=== PATIENT | female | born 1965 | race Caucasian/White ===

== ENCOUNTER 2017-08-21 23:43 | Observation (INO) | payer OTHER ==
[~2017-08-21] VITALS: Ht 152.4 cm; Wt 61.5 kg
[~2017-08-21 23:43] MED LIST: IBUP600T26 PO; ZYRT10TA12 PO
[2017-08-21 23:45] VITALS: BP 133/78; PULSE 79; RESP 16; TEMP 98.8; O2SAT 98
--- NOTE | 2017-08-22 02:12 | PD ---
HPI Chief Complaint: Chest Pain Time Seen by Provider: 01:45 Travel History International Travel<30 days: No Contact w/Intl Traveler<30days: No Traveled to known affect area: No History of Present Illness HPI 51yo F with PMH of tachyarrhythmia s/p ablation about 3 years ago presents to the ED with c/o left sided chest pain after leaving AMA from [facility]. Pt states chest pain is pressure like and constant. Associated with some sob and cold sensation in left arm. Also with left upper back pain but that is not pressure like. Denies any fever, cough, n/v, abdominal pain, focal weakness or numbness. States she had blood work, CXR at [facility]. States she was going to be transferred here for admission but they didnt want to wait so they signed out AMA and came here themselves. Was given aspirin and nitroglycerin paste. Pt does not have a lighting adviser and had not had similar chest pain in the past. Also with palpitations 2 weeks ago. PFSH Past Medical History Heart Rhythm Problems: Yes (TACHYCARDIA) Cardiovascular Problems: Yes (TACHYCARDIA) Diminished Hearing: No Tetanus Vaccination: Unknown Influenza Vaccination: No ?: Not Past Surgical History Cardiac Surgery: Yes (ABLATION TO TREAT TACHYCARDIA) Other Surgery: Yes Social History Alcohol Use: No Tobacco Use: No Substance Use: No Allergies-Medications (Allergen,Severity, Reaction): Coded Allergies: cortisone (Verified Allergy, Severe, 08/21/17) adhesive (Verified Allergy, Mild, ITCHING, HEADACHE, 08/21/17) codeine (Verified Allergy, Mild, ITCHING/HEADACHE/NAUSEA, 08/21/17) Reported Meds & Prescriptions Reported Meds & Active Scripts Active No Active Prescriptions or Reported Medications Review of Systems Except as stated in HPI: all other systems reviewed are Neg Physical Exam Narrative GENERAL: 51yo F not in distress. SKIN: Focused skin assessment warm/dry. HEAD: Atraumatic. Normocephalic. NECK: Trachea midline. No JVD. CARDIOVASCULAR: Regular rate and rhythm. No murmur appreciated. RESPIRATORY: No accessory muscle use. Clear to auscultation. Breath sounds equal bilaterally. GASTROINTESTINAL: Abdomen soft, non-tender, nondistended. No rebound tenderness or guarding. MUSCULOSKELETAL: No obvious deformities. No clubbing. No cyanosis. No edema. NEUROLOGICAL: Awake and alert. No obvious cranial nerve deficits. Motor grossly within normal limits. Normal speech. PSYCHIATRIC: Appropriate mood and affect; insight and judgment normal. Data Data Last Documented VS Vital Signs Date Time Temp Pulse Resp B/P (MAP) Pulse Ox O2 Delivery O2 Flow Rate FiO2 08/22/17 03:00 78 16 100/68 (79) 98 Room Air 08/21/17 23:45 98.8 Orders Orders Electrocardiogram (08/22/17 ) Troponin I (08/22/17 02:04) Admit Order (Ed Use Only) (08/22/17 03:41) Activity Bed Rest With Brp (08/22/17 03:41) Vital Signs (Adult) Q4H (08/22/17 03:41) Cardiac Rhythm .As Directed (08/22/17 03:41) Notify Dr: Other .PRN (08/22/17 03:41) Notify Parameters (08/22/17 03:41) Resp Oxygen Nasal Cannula (08/22/17 ) Ckmb (Isoenzyme) Profile (08/22/17 03:41) Troponin I (08/22/17 03:41) Electrocardiogram (08/22/17 03:41) Electrocardiogram (08/22/17 06:41) ^ Obtain (08/22/17 03:41) Sodium Chloride 0.9% Flush (Ns Flush) (08/22/17 03:45) Sodium Chloride 0.9% Flush (Ns Flush) (08/22/17 09:00) Cuprous Chloride Helper / Telemetry LANCE.Q8H (08/22/17 03:41) Labs Laboratory Tests Test 08/22/17 02:25 Troponin I LESS THAN 0.02 NG/ML MDM Medical Decision Making Medical Screen Exam Complete: Yes Emergency Medical Condition: Yes Interpretation(s) EKG: NSR 72bpm. Normal axis. No ST segment elevation or depresion. TWI V2, III. Differential Diagnosis ACS vs. GERD vs. musculoskeletal pain Narrative Course 51yo F with history of tachyarrhythmia s/p ablation here with left sided chest pain. Pt had labs completed at [place] and I reviewed the labs. No leukocytosis. H/H normal. Troponin negative at 8:22pm. Will order second troponin now. Pt already had CXR that was normal. Troponin #2 negative. Will admit to chest pain center for serial EKG and cardiac enzyme and possible cardiac stress test. Diagnosis Primary Impression: Chest pain Qualified Codes: R07.9 - Chest pain, unspecified Admitting Information Admitting Physician Requests: Observation Scripts No Active Prescriptions or Reported Meds Tri Andrews DO Aug 22, 2017 02:12
[2017-08-22 03:00] VITALS: BP 100/68; PULSE 78; RESP 16; O2SAT 98
[2017-08-22] MEDS ORDERED: SODIUM CHLORIDE 0.9% FLUSH 10 ML FLUSH IV FLUSH PRN (03:45)
[2017-08-22 04:28] VITALS: O2SAT 98
[2017-08-22 05:21] VITALS: BP 91/52; PULSE 73; RESP 18; TEMP 97.8; O2SAT 98
[2017-08-22 05:24] VITALS: BP 103/72
[2017-08-22 06:11] LABS: CREATINE KINASE 51 U/L (26-192)
[2017-08-22 07:28] VITALS: BP 100/59; PULSE 81; RESP 18; TEMP 98.6; O2SAT 96
[2017-08-22] MEDS ORDERED: SODIUM CHLORIDE 0.9% FLUSH 10 ML FLUSH IV FLUSH SCH (09:00)
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
[2017-08-22] MEDS ORDERED: ONDANSETRON HCL 4 MG/2 ML VIAL IV PUSH PRN (09:15)
[2017-08-22] MEDS ORDERED: ACETAMINOPHEN 500 MG CPLT PO PRN (09:15)
[2017-08-22] MEDS ORDERED: NITROGLYCERIN 0.4 MG SL 25 TABS/BTL SL PRN (09:15)
[2017-08-22 11:34] VITALS: BP 93/64; PULSE 88; RESP 16; TEMP 99.1; O2SAT 97
[2017-08-22] MEDS ORDERED: OMEP20TA PO (12:11)
--- NOTE | 2017-08-22 12:12 | HHI.DCPOC ---
Discharge Care Plan Diagnosis: (1) Atypical chest pain (2) GERD (gastroesophageal reflux disease) (3) Situational stress Goals to Promote Your Health * To prevent worsening of your condition and complications * To maintain your health at the optimal level Directions to Meet Your Goals Take your medications as prescribed Follow your dietary instruction Follow activity as directed Keep your appointments as scheduled Take your immunizations and boosters as scheduled If your symptoms worsen call your PCP, if no PCP go to Urgent Care Center or Emergency Room Smoking is Dangerous to Your Health. Avoid second hand smoke Call the 24-hour hour crisis hotline for domestic abuse at Delisa Lombardi Aug 22, 2017 12:12
--- NOTE | 2017-08-22 18:26 | TR ---
Date Performed: 08/22/2017 Time Performed: 10:51:57 DOCTOR: Aarti Kovacs DRUG LIST: CLINICAL HISTORY: REASON FOR TEST: Chest pain REASON FOR ENDING: OBSERVATION: CONCLUSION: Marquise protocol completed. Stopped sec to exceeding target heart rate and leg fatigue . Maximum DN=283 Target HR Achieved=86.0% Maximum RW=539/88 Total Exercise Time=7:33. No reprod chest discomfort. No ectopy. No st t segment changes to sugg ischemia. Good exercise tolerance. Normal bp response. Recovery quick and unremarkable. COMMENTS:
--- NOTE | 2017-08-22 18:28 | EKG ---
Date Performed: 08/22/2017 Time Performed: 00:40:30 PTAGE: 51 years EKG: Sinus rhythm LOW QRS VOLTAGE IN PRECORDIAL LEADS BORDERLINE ECG Since PREVIOUS TRACING , no significant change noted PREVIOUS TRACIN01/01/2015 06.35 DOCTOR: Aarti Kovacs Interpretating Date/Time 08/22/2017 18:28:13
--- NOTE | 2017-08-22 18:28 | EKG ---
Date Performed: 08/22/2017 Time Performed: 06:42:13 PTAGE: 51 years EKG: Sinus rhythm LOW QRS VOLTAGE IN PRECORDIAL LEADS BORDERLINE ECG Since PREVIOUS TRACING , no significant change noted PREVIOUS TRACIN01/01/2015 06.35 DOCTOR: Aarti Kovacs Interpretating Date/Time 08/22/2017 18:27:51
--- NOTE | 2017-08-22 18:28 | EKG ---
Date Performed: 08/22/2017 Time Performed: 08:40:13 PTAGE: 51 years EKG: Sinus rhythm LOW QRS VOLTAGE IN PRECORDIAL LEADS BORDERLINE ECG Since PREVIOUS TRACING , no significant change noted DOCTOR: Aarti Kovacs Interpretating Date/Time 08/22/2017 18:27:40
[2017-08-23] MEDS ORDERED: ASPIRIN 325 MG TAB PO SCH (09:00)
== END 2017-08-22 13:30 | disposition home or self-care (01) ==
LOC: NEPC 23:43 → NEDA 08-22 03:43 → NEPHCDU 08-22 05:06
PROVIDERS: ADMIT Internal Medicine Cardiovascular Disease; ATTEND Internal Medicine Cardiovascular Disease
DX: R07.9 Chest pain, unspecified (principal); R94.31 Abnormal electrocardiogram [ECG] [EKG]; K21.9 Gastro-esophageal reflux disease without esophagitis; G47.00 Insomnia, unspecified; F43.9 Reaction to severe stress, unspecified
CPT/HCPCS: 82550; 84484; 93005; 93017; 99285; G0378